=== PATIENT | male | born 1995 | race Caucasian/White ===

== ENCOUNTER 2018-08-12 21:20 | Emergency (ER) | payer OTHER ==
--- NOTE | 2018-08-12 22:53 | ED ---
GI/ HPI - HPI Summary HPI Summary: Pt. is a 23 y.o male who presents to the ER for STI testing. Pt.'s significant other is also a pt. mateo requesting testing for STI. Pt. states that he had unprotected intercourse with female about a week or so ago. He states that his partner developed vaginal itching, rash and vaginal discharge. Pt. currently denies fever, lesions, abd pain, dysuria, penile discharge. Pt. states that he has been with a male partner who was positive for herpes and is concerned he may have given herpes to his new female partner. Symptoms are mild in severity. No current modifying factors. Pt. also would like to have his right foot checked out. Pt. states he was skateboarding yesterday when he fell and struck his right heal hard off the concrete. No other injuries sustained. Can ambulate with pain. - History of Current Complaint Chief Complaint: EDGeneral Time Seen by Provider: 08/12/18 21:28 Stated Complaint: NEEDS TESTING FOR STDC Hx Obtained From: Patient Pain Intensity: 0 - Allergy/Home Medications Allergies/Adverse Reactions: Allergies Allergy/AdvReac Type Severity Reaction Status Date / Time No Known Allergies Allergy Verified 08/12/18 21:35 Home Medications: Home Medications NK [No Home Medications Reported] 08/12/18 [History Confirmed 08/12/18] PMH/Surg Hx/FS Hx/Imm Hx Previously Healthy: Yes Infectious Disease History: No Infectious Disease History: Denies: Traveled Outside the [place] in Last 30 Days - Family History Known Family History: Positive: Other - Noncontributory - Social History Occupation: Student Lives: Dormitory/Roommates Alcohol Use: Weekly Substance Use Type: Reports: Other Substance Use Comment - Amount & Last Used: adderal, xanax Smoking Status (MU): Light Every Day Tobacco Smoker Review of Systems Constitutional: Negative Negative: Fever, Chills Gastrointestinal: Negative Negative: Abdominal Pain Genitourinary: Negative Negative: dysuria, discharge Positive: Other - Right foot pain Skin: Negative Negative: Rash All Other Systems Reviewed And Are Negative: Yes Physical Exam Triage Information Reviewed: Yes Vital Signs On Initial Exam: Initial Vitals Temp Pulse Resp BP Pulse Ox 99.0 F 98 16 159/103 98 08/12/18 21:30 08/12/18 21:30 08/12/18 21:30 08/12/18 21:30 08/12/18 21:30 Vital Signs Reviewed: Yes Appearance: Positive: Well-Appearing - Pt. sitting on bed in NAD. Skin: Positive: Warm, Dry Head/Face: Positive: Normal Head/Face Inspection Eyes: Positive: Normal, EOMI Musculoskeletal: Positive: Other - Pain on palpation to over right calcaneus. No ankle of metatarsal pain. No breaks in the skin. No edema or ecchymosis. Neurological: Positive: Normal, CN Intact II-III Psychiatric: Positive: Affect/Mood Appropriate Diagnostics - Vital Signs Vital Signs Temp Pulse Resp BP Pulse Ox 08/12/18 21:30 99.0 F 98 16 159/103 98 - Laboratory Lab Statement: Any lab studies that have been ordered have been reviewed, and results considered in the medical decision making process. GIGU Course/Dx - Course Course Of Treatment: Pt. presenting for STI testing and foot injury. Xray of foot is negative for fx or acute findings. Pt. would like prophylactically treated given partners symptoms. Rocephin and azithromax given. Pt. is a student at . Advised to f.u with their health clinic on Tuesday. Will call if test are positive. Advised to always use sexual protection. Pt. understands and agrees with plan. - Diagnoses Differential Diagnoses - Male: STD, Urethritis Provider Diagnoses: Foot contusion, Sexually transmitted disease exposure Discharge - Sign-Out/Discharge Documenting (check all that apply): Patient Departure - Discharge Plan Condition: Good Disposition: HOME Patient Education Materials: Sexually Transmitted Diseases (ED), Condom Use (ED ), Safe Sex (ED), Foot Contusion (ED) Referrals: No Primary Care Phys,NOPCP [Primary Care Provider] - [facility] [Outside] Additional Instructions: Schedule a follow up appointment with health clinic Will call if testing comes back positive Always use sexual protection such as condoms - Billing Disposition and Condition Condition: GOOD Disposition: Home
[2018-08-12] MEDS ORDERED: Azithromycin TAB* 250 MG PO ONE (22:57)
[2018-08-12] MEDS ORDERED: cefTRIAXone VIAL(*) 250 MG VIAL IM ONE (22:57)
[2018-08-12] MEDS ORDERED: Lidocaine 1%* 5 ML VIAL ONE (23:03)
[2018-08-12 23:16] VITALS: BP 126/87
--- NOTE | 2018-08-13 09:00 | RAD ---
Indication: RIGHT foot pain following injury yesterday. Comparison: No relevant prior exams available on the [facility] for comparison. Technique: AP, lateral, and oblique views RIGHT foot. Report: Negative for fracture or malalignment. Preserved joint spaces. Unremarkable soft tissue contours. IMPRESSION: #. Negative exam. R0
[2018-08-15 12:57] LABS: Herpes Simplex Virus II IgG AB Negative (Negative)
== END 2018-08-12 23:16 | disposition home or self-care (01) ==
LOC: ED 21:20
DX: Z20.2 Contact with and (suspected) exposure to infections with a predominantly sexual mode of transmission (principal); S90.31XA Contusion of right foot, initial encounter; V00.131A Fall from skateboard, initial encounter; Y93.51 Activity, roller skating (inline) and skateboarding; Y92.9 Unspecified place or not applicable; F17.200 Nicotine dependence, unspecified, uncomplicated
CPT/HCPCS: 86694; 86695; 86696; 87491; 87591; 96372; 99282; A9270-GY; J0696